=== PATIENT | male | born 2000 | race African-American/Black ===

== ENCOUNTER 2024-03-27 19:55 | Emergency (ER) | payer OTHER ==
[~2024-03-27] VITALS: Ht 175.3 cm; Wt 83.9 kg
[2024-03-27 20:09] VITALS: BP_SYST 138; PULSE 105; RESP 20; TEMP 100.9; O2SAT 98
[2024-03-27 20:59] LABS: BASOPHILS % (AUTO) 0.2 % (0.0-2.0); EOSINOPHILS # (AUTO) 0.2 K/uL (0.0-0.4); EOSINOPHILS % (AUTO) 1.2 % (0.0-4.0); HEMATOCRIT 49.3 % (36-54); HEMOGLOBIN 16.6 g/dL (14.0-18.0); LYMPHOCYTES # (AUTO) 1.4 K/uL (1.0-5.5); LYMPHOCYTES % (AUTO) 8.9 % (20.5-51.5); MEAN CORPUSCULAR HEMOGLOBIN 28 pg (27-31); MEAN CORPUSCULAR HGB CONC 34 % (32-36); MEAN CORPUSCULAR VOLUME 84 fL (79.0-98.0); MONOCYTES # (AUTO) 2.9 K/uL (0.0-1.0); MONOCYTES % (AUTO) 18.2 % (1.7-9.3); NEUTROPHILS # (AUTO) 11.4 K/uL (1.8-7.7); NEUTROPHILS % (AUTO) 71.5 % (40.0-70.0); PLATELET COUNT (AUTO) 124 K/uL (130-430); RED BLOOD CELL COUNT(AUTO) 5.85 MIL/uL (4.2-6.2); RED CELL DISTRIBUTION WIDTH 13.4 % (9.0-15.0)
[2024-03-27] MEDS ORDERED: iohexoL 350 mgI/mL, 100 ML INFUS..BTL IV ONE (21:00)
[2024-03-27 21:11] LABS: BILIRUBIN,DIRECT 0.3 mg/dL (0.0-0.3); CREATININE 1.28 mg/dL (0.55-1.30); TOTAL BILIRUBIN 0.8 mg/dL (0.0-1.0); TOTAL PROTEIN, SERUM 9.7 g/dL (6.4-8.3)
[2024-03-27] MEDS: NACL 0.9% 1,000 ML IV ONE (21:43)
[2024-03-27] MEDS: DEXAMETHASONE SOD PHOSPHATE 10 MG/ML VIAL IVP ONE (21:49)
[2024-03-27] MEDS ORDERED: PIPERACILLIN/TAZOBACTAM 3.375 GM/VIAL (ZOSYN) IV ONE ×2 (22:56→23:17)
[2024-03-27] MEDS: ONDANSETRON HCL 4 MG/2 ML VIAL IVP ONE (22:59)
[2024-03-27] MEDS: MORPHINE 4 MG INJ. 4 MG/ML VIAL IVP ONE (23:01)
[2024-03-27] MEDS: PIPERACILLIN/TAZO 3.375 GM in NS 50 ML IV ONE (23:21)
[2024-03-28] MEDS ORDERED: LIDOCAINE/EPI 1% 1:100000 20 ML VIAL ONE (00:36)
[2024-03-28] MEDS: MORPHINE 4 MG INJ. 4 MG/ML VIAL IVP ONE (01:05)
[2024-03-28] MEDS: NACL 0.9% 1,000 ML IV ONE (04:10)
[2024-03-28 13:47] VITALS: BP_SYST 136; PULSE 82; RESP 20; TEMP 97.6; O2SAT 95
== END 2024-03-28 13:45 | disposition short-term general hospital (02) ==
LOC: SED 19:55
DX: J36 Peritonsillar abscess (principal); Z20.822 Contact with and (suspected) exposure to COVID-19
CPT/HCPCS: 99285; 96365; 70498; 96375; 96361 ×2; 87426; 80076; 80048; 85025; 87040; 36415; 83605; 96376; Q9967; J1100; J2405; J2543; J2270 ×2; J7030 ×2